=== PATIENT | male | born 1950 | race African-American/Black ===

== ENCOUNTER 2018-06-22 05:24 | Day surgery (SDC) | payer OTHER ==
[~2018-06-22] VITALS: Ht 167.6 cm; Wt 90.5 kg
[~2018-06-22 05:24] MED LIST: AMLO-512 PO; ARIP20TA PO; DIVA-78 PO; LOSA100T2 PO; RISP1 PO
[2018-06-22] MEDS ORDERED: SODIUM CHLORIDE 0.9% 1,000 ML IV ONE ×2 (06:30→06:33)
[2018-06-22] MEDS ORDERED: MIDAZOLAM HCL 2 MG/2 ML VIAL ONE (07:26)
[2018-06-22] MEDS ORDERED: FentaNYL CITRATE-PF 100 MCG/2 ML VIAL ONE (07:27)
[2018-06-22] MEDS ORDERED: ESCI10TA PO (07:46)
[2018-06-22] MEDS ORDERED: CHOL50004 PO (07:46)
[2018-06-22] MEDS ORDERED: MONT10TA21 PO (07:46)
[2018-06-22] MEDS ORDERED: MethylPREDNISolone SOD SUCC 125 MG/2 ML VIAL ONE (08:57)
[2018-06-22] MEDS ORDERED: MethylPREDNISolone SOD SUCC 125 MG/2 ML VIAL IVP ONE (09:00)
[2018-06-22] MEDS ORDERED: EPINEPHrine 1:1,000 [1 MG/ML] AMP ONE (17:29)
[2018-06-22] MEDS ORDERED: LIDOCAINE HCL 2% 30 ML JELLY ONE (17:29)
[2018-06-22] MEDS ORDERED: BENZOCAINE 20% 50 MCG/SPRAY 57 GM ONE (17:29)
[2018-06-22] MEDS ORDERED: LIDOCAINE HCL 4% 50 ML SOLUTION ONE (17:29)
[2018-06-22] MEDS ORDERED: OXYGEN THERAPY IH SCH (20:00)
== END 2018-06-22 10:15 | disposition home or self-care (01) ==
LOC: SURGERY 05:24
PROVIDERS: ATTEND Internal Medicine Critical Care Medicine
DX: J38.4 Edema of larynx (principal); B37.0 Candidal stomatitis; J39.8 Other specified diseases of upper respiratory tract; Q33.6 Congenital hypoplasia and dysplasia of lung; J84.111 Idiopathic interstitial pneumonia, not otherwise specified; I10 Essential (primary) hypertension; M19.90 Unspecified osteoarthritis, unspecified site; F32.9 Major depressive disorder, single episode, unspecified; M16.0 Bilateral primary osteoarthritis of hip; J45.998 Other asthma; F20.0 Paranoid schizophrenia; Z96.641 Presence of right artificial hip joint; Z87.891 Personal history of nicotine dependence; Z98.890 Other specified postprocedural states; Z79.899 Other long term (current) drug therapy
CPT/HCPCS: 31623; 31624; 71045; 87015; 87070; 87205; 87206; 87220; 88108; 88312; J0171; J2250; J2930; J3010; J7030

== ENCOUNTER 2019-11-23 07:54 | Day surgery (SDC) | payer MEDICARE, MEDICAID ==
[~2019-11-23] VITALS: Ht 165.1 cm; Wt 93.0 kg
[~2019-11-23 07:54] MED LIST changes: -AMLO-512 PO; +AMLO10TA7 PO; +CHOL125C2 PO; +ESCI10TA PO; +MONT10TA21 PO; -RISP1 PO
[2019-11-23] MEDS ORDERED: SODIUM CHLORIDE 0.9% 1,000 ML IV ONE (08:00)
[2019-11-23] MEDS ORDERED: SODIUM CHLORIDE 0.9% 1,000 ML ONE (08:10)
[2019-11-23 08:46] LABS: BASOPHILS % (AUTO) 0.9 % (0.0-2.0); EOSINOPHILS % (AUTO) 3.9 % (1.0-6.0); HEMATOCRIT 44.7 % (41-53); HEMOGLOBIN 14.6 g/dL (13.5-17.5); LYMPHOCYTES # (AUTO) 1.3 K/uL (1.0-4.8); LYMPHOCYTES % (AUTO) 19.7 % (22.0-44.0); MEAN CORPUSCULAR HGB CONC 32.7 G/dL (31.0-37.0); MEAN CORPUSCULAR VOLUME 86 fL (80-100); MONOCYTES # (AUTO) 0.8 K/uL (0.1-1.0); MONOCYTES % (AUTO) 12.6 % (2.0-9.0); NEUTROPHILS # (AUTO) 4.2 K/uL (1.8-7.7); NEUTROPHILS % (AUTO) 62.9 % (40.0-70.0); PLATELET COUNT (AUTO) 304 K/uL (150-450); RED BLOOD CELL COUNT(AUTO) 5.22 MIL/uL (4.50-5.90); RED CELL DISTRIBUTION WIDTH 15.4 % (11.5-14.5)
[2019-11-23 08:56] LABS: ANION GAP 7 mmol/L (8-16); CARBON DIOXIDE 30 mmol/L (22-29); CHLORIDE 109 mmol/L (98-107); CREATININE 1.11 mg/dL (0.60-1.30); GLOMERULAR FILTR. RATE CALC > 60 mL/min (>60); GLUCOSE,RANDOM 81 mg/dL (70-110); POTASSIUM 3.6 mmol/L (3.5-5.1); SODIUM SERUM 146 mmol/L (136-145); UREA NITROGEN, BLOOD 17 mg/dL (7-18)
[2019-11-23 08:58] LABS: INR 1.1 (0.9-1.1)
[2019-11-23] MEDS ORDERED: AMIO200T5 PO (09:12)
[2019-11-23] MEDS ORDERED: DICL50TA9 PO (09:12)
[2019-11-23] MEDS ORDERED: SIMV-260 PO (09:12)
[2019-11-23] MEDS ORDERED: METO50 PO (09:12)
[2019-11-23] MEDS ORDERED: APIX5TAB PO (09:12)
[2019-11-23] MEDS ORDERED: FLUT16H NASAL (09:12)
[2019-11-23] MEDS ORDERED: BUDE10.2 IH (09:12)
[2019-11-23] MEDS ORDERED: PANT40TA25 PO (09:12)
[2019-11-23] MEDS ORDERED: DILT-92 PO (09:12)
== END 2019-11-23 11:50 | disposition home or self-care (01) ==
LOC: CATHLAB 07:54
PROVIDERS: ATTEND Internal Medicine Interventional Cardiology
DX: R07.9 Chest pain, unspecified (principal); Z53.8 Procedure and treatment not carried out for other reasons; Z79.01 Long term (current) use of anticoagulants
CPT/HCPCS: 36415; 80048; 85025; 85610; 85730; 93005; J7030

== ENCOUNTER 2021-07-30 06:31 | Day surgery (SDC) | payer OTHER ==
[2021-07-27 12:29] LABS: COVID AG,FIA SOURCE NASOPHARYNGEAL
[~2021-07-30] VITALS: Ht 167.6 cm; Wt 95.5 kg
[~2021-07-30 06:31] MED LIST changes: +ALBU8HFA IH; -AMLO10TA7 PO; -ARIP20TA PO; +ARIP30TA PO; +ASCO500T22 PO; +BUDE10.2 IH; -CHOL125C2 PO; +CHOL500013 PO; +DILT-92 PO; -DIVA-78 PO; +DIVA-80 PO; -ESCI10TA PO; +ESCI20TA87 PO; +FLUT16H NASAL; -LOSA100T2 PO; +METO-558 PO; +MONT-35 PO; -MONT10TA21 PO; +OS500 PO; +PANT-31 PO; +SIMV-260 PO; +SODIUM CHLORIDE 0.9% 1,000 ML IV ONE; +SODIUM CHLORIDE 0.9% 1,000 ML ONE
[2021-07-30] MEDS ORDERED: BENZOCAINE 20% 50 MCG/SPRAY 57 GM TP ONE (06:32)
[2021-07-30] MEDS ORDERED: LIDOCAINE 2% 30 ML JELLY TP ONE (06:32)
[2021-07-30] MEDS ORDERED: LIDOCAINE 4% 50 ML SOLUTION TP ONE (06:32)
[2021-07-30] MEDS ORDERED: MELO-108 PO (07:29)
[2021-07-30] MEDS ORDERED: BACL20TA PO (07:29)
[2021-07-30] MEDS ORDERED: DOXY100C5 PO (07:29)
[2021-07-30] MEDS ORDERED: MIDAZOLAM HCL 5 MG/ML VIAL ONE (07:34)
[2021-07-30] MEDS ORDERED: FentaNYL CITRATE PF 100 MCG/2 ML VIAL ONE (07:34)
[2021-07-30] MEDS ORDERED: MethylPREDNISolone SOD SUCC 125 MG/2 ML VIAL IVP ONE (09:00)
[2021-07-30] MEDS ORDERED: MethylPREDNISolone SOD SUCC 125 MG/2 ML VIAL ONE (09:24)
[2021-07-30] MEDS ORDERED: OXYGEN THERAPY IH SCH (20:00)
== END 2021-07-30 10:20 | disposition home or self-care (01) ==
LOC: SURGERY 06:31
PROVIDERS: ATTEND Internal Medicine Critical Care Medicine
DX: J38.4 Edema of larynx (principal); B37.0 Candidal stomatitis; M19.90 Unspecified osteoarthritis, unspecified site; I10 Essential (primary) hypertension; E78.00 Pure hypercholesterolemia, unspecified; J45.909 Unspecified asthma, uncomplicated; Z98.890 Other specified postprocedural states; Z87.891 Personal history of nicotine dependence; Z96.641 Presence of right artificial hip joint; Z79.899 Other long term (current) drug therapy
CPT/HCPCS: 31623; 31624; 71045; 87015; 87070; 87101; 87205; 87206; 87220; 87426; 88108; 88184; 88185; 88312; C9803; J2250; J2930; J3010; J7030; Z7610

== ENCOUNTER 2024-11-22 06:36 | Day surgery (SDC) | payer OTHER ==
[~2024-11-22] VITALS: Ht 167.6 cm; Wt 88.6 kg
[~2024-11-22 06:36] MED LIST changes: +ALBU18HF12 IH; -ALBU8HFA IH; +BACL20TA PO; +DIVA-153 PO; -DIVA-80 PO; +DOXY100C5 PO; -FLUT16H NASAL; +FLUT16SP NASAL; +MELO-108 PO; +METO-325 PO; -METO-558 PO; -SODIUM CHLORIDE 0.9% 1,000 ML IV ONE; -SODIUM CHLORIDE 0.9% 1,000 ML ONE
[2024-11-22] MEDS ORDERED: LIDOCAINE 2% 11 ML JELLY TP ONE (06:37)
[2024-11-22] MEDS ORDERED: LIDOCAINE 4% 50 ML SOLUTION TP ONE (06:37)
[2024-11-22] MEDS ORDERED: BENZOCAINE 20% 50 MCG/SPRAY 57 GM TP ONE (06:37)
[2024-11-22] MEDS ORDERED: SODIUM CHLORIDE 0.9% 0 ML ONE (08:16)
[2024-11-22] MEDS: SODIUM CHLORIDE 0.9% 1,000 ML IV ONE (08:17)
[2024-11-22] MEDS ORDERED: FLUMAZENIL 0.1 MG/ML 5 ML VIAL IVP ONE (08:27)
[2024-11-22] MEDS ORDERED: DiphenhydrAMINE HCL 50 MG/ML VIAL ONE (08:27)
[2024-11-22] MEDS ORDERED: ATROPINE SULFATE 0.1 MG/ML 10 ML SYRINGE IVP ONE (08:27)
[2024-11-22] MEDS ORDERED: NALOXONE HCL 0.4 MG/ML VIAL ONE (08:27)
[2024-11-22] MEDS ORDERED: EPINEPHrine 1:10,000 [1 MG/10 ML] SYRINGE ONE (08:27)
[2024-11-22] MEDS ORDERED: SODIUM TETRADECYL SULFATE 3% 60 MG/2 ML VIAL IVP ONE (08:27)
[2024-11-22] MEDS ORDERED: MIDAZOLAM HCL 2 MG/2 ML VIAL ONE (08:28)
[2024-11-22] MEDS ORDERED: FentaNYL CITRATE PF 100 MCG/2 ML VIAL ONE (08:28)
[2024-11-22 09:31] VITALS: PULSE 65; RESP 18; O2SAT 100
[2024-11-22] MEDS ORDERED: MethylPREDNISolone SOD SUCC 125 MG/2 ML VIAL ONE (10:19)
[2024-11-22] MEDS: MethylPREDNISolone SOD SUCC 125 MG/2 ML VIAL IVP ONE (10:25)
== END 2024-11-22 13:35 | disposition home or self-care (01) ==
LOC: SURGERY 06:36
PROVIDERS: ATTEND Internal Medicine Critical Care Medicine
DX: R05.3 Chronic cough (principal); B37.0 Candidal stomatitis; J38.4 Edema of larynx; I10 Essential (primary) hypertension; E78.00 Pure hypercholesterolemia, unspecified; M19.90 Unspecified osteoarthritis, unspecified site; Z87.891 Personal history of nicotine dependence; Z96.641 Presence of right artificial hip joint
CPT/HCPCS: 31623; 87206; 87101; 87220; 87070; 88108; 31624; 71045; 87015; J3010; J2250; J2919; J0171; J0461; J1200; J2310; J3490; J7030; Z7610